=== PATIENT | male | born 1990 | race Caucasian/White ===

== ENCOUNTER 2024-02-15 02:32 | Emergency (ER) | payer OTHER ==
[~2024-02-15] VITALS: Ht 175.3 cm; Wt 67.0 kg
[2024-02-15 03:04] LABS: BASO % 0.5 % (0.0-1.0); EOS # 0.3 10^3/uL (0.0-0.5); LYMPH # 2.5 10^3/uL (1.5-5.0); LYMPH % 31.6 % (24.0-44.0); MEAN CORPUSCULAR HEMOGLOBIN 24.9 pg (27.0-33.0); MEAN CORPUSCULAR HGB CONC 31.9 g/dl (32.0-36.5); MEAN CORPUSCULAR VOLUME 78.1 fl (80.0-96.0); MONO # 0.7 10^3/uL (0.0-0.8); MONO % 8.4 % (2.0-8.0); NEUTROPHILS # 4.4 10^3/uL (1.5-8.5); NEUTROPHILS % 55.4 % (36.0-66.0); PLATELET COUNT, AUTOMATED 322 10^3/uL (150-450); RED BLOOD COUNT 6.02 10^6/uL (4.30-6.10)
[2024-02-15 03:47] LABS: CK-MB VALUE MASS < 1.0 NG/ML (<3.6)
[2024-02-15 03:49] LABS: BLOOD UREA NITROGEN 19 MG/DL (9-23); CALCIUM LEVEL 9.6 MG/DL (8.5-10.1); CARBON DIOXIDE LEVEL 27 MMOL/L (20-31); CHLORIDE LEVEL 105 MMOL/L (98-107); CPK CREATINE PHOSPHOKINASE 65 U/L (46-171); CREATININE FOR GFR 0.87 MG/DL (0.70-1.30); GLOMERULAR FILTRATION RATE > 60.0 (>60); GLUCOSE, FASTING 154 MG/DL (60-100); MAGNESIUM LEVEL 1.9 MG/DL (1.8-2.4); MB/CK RELATIVE INDEX 1.53 (< OR =4); POTASSIUM SERUM 3.4 MMOL/L (3.5-5.1); SODIUM LEVEL 140 MMOL/L (136-145)
[2024-02-15 03:51] LABS: FREE T4 1.09 NG/DL (0.89-1.76); THYROID STIMULATING HORMONE 1.583 uIU/ML (0.55-4.78)
[2024-02-15 04:42] LABS: CK-MB VALUE MASS < 1.0 NG/ML (<3.6)
[2024-02-15 04:43] LABS: CPK CREATINE PHOSPHOKINASE 57 U/L (46-171); MB/CK RELATIVE INDEX 1.75 (< OR =4)
[2024-02-15] MEDS ORDERED: HOLTER MONITOR XX (05:14)
[2024-02-15 05:26] VITALS: BP 113/73; TEMP 98.8; O2SAT 99
== END 2024-02-15 05:28 | disposition home or self-care (01) ==
LOC: M ED 02:34
DX: R00.2 Palpitations (principal); F17.200 Nicotine dependence, unspecified, uncomplicated; F10.10 Alcohol abuse, uncomplicated

== ENCOUNTER → 2024-02-15 | Outpatient (CLI) | payer OTHER ==
[~2024-02-15] MED LIST: HOLTER MONITOR XX
== END ==
LOC: M EKG 12:09
PROVIDERS: ATTEND Emergency Medicine
DX: R00.2 Palpitations (principal); Z53.9 Procedure and treatment not carried out, unspecified reason

== ENCOUNTER → 2024-03-15 | Outpatient (REF) | payer OTHER ==
[2024-03-15 13:56] LABS: Trichomonas vaginalis (AMP) NOT DETECTED (NEGATIVE)
[2024-03-15 14:45] LABS: GC DNA AMPLIFICATION NEGATIVE (NEGATIVE)
[2024-03-18 14:35] LABS: BLOOD UREA NITROGEN 20 MG/DL (9-23); CREATININE FOR GFR 0.85 MG/DL (0.70-1.30); GLOMERULAR FILTRATION RATE > 60.0 (>60); GLUCOSE, FASTING 83 MG/DL (60-100); POTASSIUM SERUM 4.1 MMOL/L (3.5-5.1); SODIUM LEVEL 140 MMOL/L (136-145)
[2024-03-18 14:36] LABS: ALBUMIN 4.5 G/DL (3.2-5.2); ALKALINE PHOSPHATASE 91 U/L (40-129); ALT/SGPT 18 U/L (7.0-40); AST/SGOT 18 U/L (<34); BILIRUBIN,TOTAL 0.4 MG/DL (0.3-1.2); CALCIUM LEVEL 9.4 MG/DL (8.5-10.1); CARBON DIOXIDE LEVEL 28.3 MMOL/L (20-31); CHLORIDE LEVEL 106 MMOL/L (98-107); CHOLESTEROL LEVEL 225 MG/DL (<200); LDL CHOLESTEROL 154.4 MG/DL (<100); TOTAL PROTEIN 7.6 G/DL (5.7-8.2); TRIGLYCERIDES LEVEL 103 MG/DL (<150)
[2024-03-18 14:37] LABS: FERRITIN 88.3 NG/ML (10.5-307.3); FOLATE 16.1 NG/ML (>5.4); IRON (FE) 126 UG/DL (65-175); PERCENT SATURATION 34.9 % (19.7-50.0); THYROID STIMULATING HORMONE 1.108 uIU/ML (0.55-4.78); TOTAL IRON BINDING CAPACITY 361 UG/DL (250-425); VITAMIN B12 LEVEL 535 PG/ML (211-911)
[2024-03-19 06:47] LABS: BASO % 0.5 % (0.0-1.0); EOS # 0.3 10^3/uL (0.0-0.5); EOS % 3.9 % (0.0-3.0); HEMATOCRIT 50.3 % (42.0-52.0); HEMOGLOBIN 15.7 g/dl (13.5-17.5); LYMPH # 2.2 10^3/uL (1.5-5.0); LYMPH % 25.2 % (24.0-44.0); MEAN CORPUSCULAR HGB CONC 31.2 g/dl (32.0-36.5); MEAN CORPUSCULAR VOLUME 80.1 fl (80.0-96.0); MONO # 0.7 10^3/uL (0.0-0.8); MONO % 8.3 % (2.0-8.0); NEUTROPHILS # 5.1 10^3/uL (1.5-8.5); NEUTROPHILS % 60.1 % (36.0-66.0); PLATELET COUNT, AUTOMATED 313 10^3/uL (150-450); RED BLOOD COUNT 6.28 10^6/uL (4.30-6.10); WHITE BLOOD COUNT 8.5 10^3/uL (4.0-10.0)
== END ==
LOC: M LAB REF 12:13
PROVIDERS: ATTEND Physician Assistant
DX: Z11.9 Encounter for screening for infectious and parasitic diseases, unspecified (principal)

== ENCOUNTER → 2024-06-17 | Outpatient (CLI) | payer OTHER | LOC: M CARPUL 08:21 | PROVIDERS: ATTEND Physician Assistant | DX: R00.2 Palpitations (principal) ==